=== PATIENT | male | born 1975 | race Caucasian/White ===

== ENCOUNTER 2022-05-20 09:59 | Emergency (ER) | payer OTHER, SELFPAY ==
[2022-05-20 10:26] VITALS: BP 133/90; PULSE 95; RESP 16; TEMP 36.6; O2SAT 97; BMI 27.0
--- NOTE | 2022-05-20 11:14 | ED_ITS ---
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 He is not having significant pain reports no loss of sensation. Just continues to bleed. He did this around 4 hours ago. no other injuries were sustained. He is used to cutting, smashing his hands he says ruefully. Related Data Home Medications Medication Instructions Recorded Confirmed lisinopril 10 mg tablet 10 mg PO BID 05/20/22 05/20/22 Allergies Allergy/AdvReac Type Severity Reaction Status Date / Time No Known Drug Allergies Allergy Verified 05/20/22 10:32 Review of Systems Status of ROS: Reports: 6 or more systems reviewed and unremarkable except as noted in History and below Exam Narrative: Exam Narrative: Calm. NAD. Well built. Tattoo on right forearm. Breathing easily. Examination of the left hand shows a 1-1/4 inch clean laceration bleeding easily. Full dermal. This is in the thenar prominence. sensation looks to be intact. Well-perfused peripherally. flexes and extends all digits with good strength. Const: Vital Signs, click to edit/add: Vital Signs - 24 hr 05/20/22 10:26 Temperature 97.9 F Pulse Rate [Right Pulse Oximeter] 95 Respiratory Rate 16 Blood Pressure [Ri ght Upper Arm] 133/90 H Pulse Oximetry 97 Oxygen Delivery Me thod Room Air Documenting provider has reviewed patient's vital signs: yes Course Course Hospital Course: he is here for repair and I concur. Vital Signs Vital signs: Initial Vital Signs Temperature 97.9 F 05/20/22 10:26 Temperature Source Temporal Artery Scan 05/20/22 10:26 Pulse Rate 95 05/20/22 10:26 Pulse Rhythm 05/20/22 10:26 Respiratory Rate 16 05/20/22 10:26 Blood Pressure 133/90 H 05/20/22 10:26 Blood Pressure Mean 104 05/20/22 10:26 Blood Pressure Position Sitting 05/20/22 10:26 Pulse Oximetry 97 05/20/22 10:26 Oxygen Delivery Method 05/20/22 10:26 Vital Signs Temperature 97.9 F 05/20/22 10:26 Pulse Rate 95 05/20/22 10:26 Respiratory Rate 16 05/20/22 10:26 Blood Pressure 133/90 H 05/20/22 10:26 Pulse Oximetry 97 05/20/22 10:26 Oxygen Delivery Method 05/20/22 10:26 Temperature 97.9 F 05/20/22 10:26 Pulse Rate 95 05/20/22 10:26 Respiratory Rate 16 05/20/22 10:26 Blood Pressure 133/90 H 05/20/22 10:26 Pulse Oximetry 97 05/20/22 10:26 Oxygen Delivery Method 05/20/22 10:26 MDM - Wound/Laceration MDM Narrative Medical decision making narrative: Gapping wound. Needs repair. Differential Diagnosis Differential diagnosis: Likely laceration Medical Records Attestation: I reviewed the patient's medical records. Discharge Plan Discharge Clinical Impression: Laceration Patient Disposition: Home, Self-Care Condition: Improved Additional Instructions: Re-dress if soak through current dressing. If soak through the 2nd, return to the emergency department. Sutures out in 8-10 days. Antibiotic ointment for 5 days and then to a dry dressing. Okay to get wet but try not to soak while the sutures are in. Watch for spreading redness after 2 days particularly accompanied by increasing heat, swelling, marked increase in pain, purulent drainage. Prescriptions: No Action lisinopril 10 mg tablet 10 mg PO BID Stand Alone Forms: [facility] Info Instructions Procedures Laceration Laceration 1: Pre procedure diagnosis: palm laceration Post procedure diagnosis: palm laceration Written consent by: patient ( verbal consent) Site marking: not applicable Verification/time out: correct site Name of person performing procedure: Jon Barlow Site: hand Side (If applicable): left Size (cm): 1.25 ( inches) Description: linear and clean Depth: simple, single layer Local Anesthetic: lidocaine 1% and with epi Amount of anesthesia used (mL): 1 ( mL) Pre-repair: wound explored and irrigated extensively ( cleaned and scrubbed with Shur-Clens equivalent) Skin layer closed with: nylon Size (cm): 5-0 Number of sutures: 6 Technique: simple, interrupted Wound cleansing: soap Estimated blood loss (if any): other (specify) Specimens removed (if any): minimal Conclusion: patient tolerated procedure ( anesthesia took mostly. did feel some sharp sensation on a few sutures.)
--- NOTE | 2022-05-20 11:31 | PC.NURSE ---
Patient discharged from the ER. Instructions provided to patient. Few dressing supplies were provided for patient. Patient stated he received a Tetanus vaccine last year but it is not recorded on [facility]. [facility] notified of this and okay to take word for it. Patient had no further questions and left via ambulatory.
== END 2022-05-20 11:33 | disposition home or self-care (01) ==
LOC: ED 11:20
PROVIDERS: Emergency Provider Family Medicine
DX: S61.412A Laceration without foreign body of left hand, initial encounter (principal); W26.0XXA Contact with knife, initial encounter; Y93.89 Activity, other specified; Y92.69 Other specified industrial and construction area as the place of occurrence of the external cause; Y99.0 Civilian activity done for income or pay
CPT/HCPCS: 12001; 99282